=== PATIENT | male | born 1980 | race African-American/Black ===

== ENCOUNTER 2022-08-09 09:29 | Emergency (ER) | payer OTHER, SELFPAY ==
[2022-08-09 09:34] VITALS: BP 160/90; PULSE 70; O2SAT 100
[2022-08-09 09:40] VITALS: BP 127/76; PULSE 75; RESP 14; TEMP 36.3; O2SAT 99; BMI 26.4
--- NOTE | 2022-08-09 09:44 | ED.FALL ---
HPI - Fall General Stated Complaint: laceration fall Time Seen by Provider: 08/09/22 09:43 History of Present Illness HPI Narrative: Patient is a 42-year-old male fell accident today complaining of pain to the right leg. No head injury no loss of consciousness. No fever no chills. No systemic complaints. No head injury. Hit his leg against a wall. Small laceration to the lower leg. Related Data Allergies Allergy/AdvReac Type Severity Reaction Status Date / Time No Known Allergies Allergy Verified 08/09/22 09:43 Review of Systems Review of Systems: No fever no chills no chest pain or shortness breath no dizziness Yes all other systems are reviewed and are negative [facility] Past Medical History Attestation statement: The following information was validated with the patient. Physical Exam Vital Signs: Appearance: Alert. Oriented X3. No acute distress. Eyes: Pupils equal, round and reactive to light. ENT: Pharynx normal. Neck: Normal inspection. Neck supple. No lymph nodes noted. No crepitus CVS: Normal heart rate and rhythm. Pulses normal. Normal S1 and S2 Respiratory: No respiratory distress. Breath sounds normal. No Wheezing. No rales Abdomen: Soft and nontender. No rigidity. No distention. good BS x4 Skin: Skin warm and dry. Normal skin color. Normal skin turgor. Extremities: No lower extremity edema. Neurovascular intact to all extremities. Small laceration less than half an inch to the lower leg on the right side. Distally neurovascularly intact. Motor intact patient ambulates normally. Neuro: Oriented X 3. No motor deficit. No sensory deficit. Moving all extermities. No slurred speech MDM - Fall MDM Narrative Medical decision making narrative: No evidence of any fracture the fall was mechanical ambulated well. Will clean the wound. Will discharge patient home. Currently in stable condition. Discharge Plan Discharge Clinical Impression: Laceration of leg Patient Disposition: Home, Self-Care Instructions: Laceration (ED) Referrals: [facility] [Physician] - 1 week
[2022-08-09] MEDS: Ketorolac Tromethamine 30 MG/ML VIAL IM (09:55)
[2022-08-09] MEDS: Diphth,Pertus(ACell),Tet Adult 0.5 ML SYRINGE IM (09:56)
--- NOTE | 2022-08-09 10:03 | PC.NURSE ---
patient a/ox4 . area to right chin clansed and appplied steri strips to , patient tolerated well . covered with non stick dressing . patient medicated as ordered . ambulance contacted for transport back to [facility] . patient aware of plan of care .
[2022-08-09] MEDS: OXcarbazepine 300 MG TABLET 600 MG PO (10:29)
[2022-08-09] MEDS: OXcarbazepine 150 MG TABLET PO (10:29)
[2022-08-09] MEDS: Baclofen 20 MG TABLET PO (10:30)
== END 2022-08-09 12:35 | disposition home or self-care (01) ==
PROVIDERS: Emergency Provider Emergency Medicine Emergency Medical Services
DX: S81.811A Laceration without foreign body, right lower leg, initial encounter (principal); X58.XXXA Exposure to other specified factors, initial encounter; Y93.9 Activity, unspecified; Y92.9 Unspecified place or not applicable; Y99.9 Unspecified external cause status; Z79.899 Other long term (current) drug therapy
CPT/HCPCS: 90471; 90715; 96372; 99284; J1885